=== PATIENT | female | born 1985 | race American Indian/Alaskan Native ===

== ENCOUNTER 2021-03-11 09:36 | Emergency (ER) | payer SELFPAY ==
--- NOTE | 2021-03-11 10:48 | Emergency Department Report ---
- General Chief Complaint: Upper Respiratory Infection Stated Complaint: FLU LIKE SYMPTOMS Time Seen by Provider: 03/11/21 10:37 Source: patient Mode of arrival: Ambulatory Limitations: No Limitations - History of Present Illness Initial Comments: 35-year-old -[place] male presents to the ER today requesting clearance to return to work. Patient states that she started with URI/flulike symptoms 2 days ago. She states majority of her symptoms have resolved, except that she still continues to have sore throat, intermittent cough and some pains in her legs. She states that 2 of her kids were tested positive for COVID 19 4 days ago. 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 She states that her job does daily COVID-19 test at her job and she did have a negative COVID test yesterday. 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 MD Complaint: cough, sore throat, other (MYALGIA) -: days(s) (2) - Related Data Home Medications Medication Instructions Recorded Confirmed Last Taken Ibuprofen [Motrin] 800 mg PO Q8H PRN 04/06/14 03/11/21 04/06/14 10:00 Previous Rx's Medication Instructions Recorded Last Taken Type Ciprofloxacin HCl [Cipro] 500 mg PO BID #14 tablet 04/06/14 Unknown Rx Ibuprofen [Motrin 600 MG tab] 600 mg PO Q8H PRN #20 tablet 04/06/14 Unknown Rx Ketorolac [Toradol] 10 mg PO Q6H PRN #20 03/11/21 Unknown Rx Allergies Allergy/AdvReac Type Severity Reaction Status Date / Time acetaminophen [From Vicodin] AdvReac Vomiting Verified 03/11/21 11:17 hydrocodone bitartrate AdvReac Vomiting Verified 03/11/21 11:17 [From Vicodin] ondansetron HCl AdvReac Vomiting Verified 03/11/21 11:17 [From Zofran (as hydrochloride)] ED Review of Systems ROS: Stated complaint: FLU LIKE SYMPTOMS Other details as noted in HPI Comment: All other systems reviewed and negative Constitutional: denies: chills, fever Eyes: denies: eye pain, eye discharge, vision change ENT: throat pain. denies: ear pain, congestion Respiratory: cough. denies: shortness of breath, SOB with exertion, SOB at rest, wheezing Cardiovascular: denies: chest pain, palpitations, dyspnea on exertion, edema, syncope, paroxysmal nocturnal dyspnea Gastrointestinal: denies: abdominal pain, nausea, vomiting, diarrhea, constipation, hematemesis, melena, hematochezia Genitourinary: denies: urgency, dysuria, frequency, hematuria, discharge Musculoskeletal: myalgia. denies: back pain, joint swelling, arthralgia Skin: denies: rash, lesions, pruritus Neurological: denies: headache, weakness, numbness, paresthesias, confusion, abnormal gait, vertigo ED Past Medical Hx - Surgical History Additional Surgical History: tubal ligation - Social History Smoking Status: Current Every Day Smoker Substance Use Type: Alcohol - Medications Home Medications: Home Medications Medication Instructions Recorded Confirmed Last Taken Type Ciprofloxacin HCl [Cipro] 500 mg PO BID #14 tablet 04/06/14 03/11/21 Unknown Rx Ibuprofen [Motrin 600 MG tab] 600 mg PO Q8H PRN #20 tablet 04/06/14 03/11/21 Unknown Rx Ibuprofen [Motrin] 800 mg PO Q8H PRN 04/06/14 03/11/21 04/06/14 10:00 History Ketorolac [Toradol] 10 mg PO Q6H PRN #20 03/11/21 Unknown Rx ED Physical Exam - General Limitations: No Limitations ED Course Vital Signs 03/11/21 03/11/21 03/11/21 10:14 11:13 11:16 Temperature 98.6 F 98.1 F 98.1 F Pulse Rate 82 73 73 Respiratory 20 20 20 Rate Blood Pressure 160/104 126/78 Blood Pressure 126/69 [Right] O2 Sat by Pulse 100 99 99 Oximetry ED Medical Decision Making - Radiology Data Radiology results: report reviewed Patient: GEO MONTALVO MR#: [id number] : 1985 Acct:[id number] Age/Sex: 35 / F ADM Date: 03/11/21 Loc: ED Attending Dr: Ordering Physician: EMILY WOODARD Date of Service: 03/11/21 Procedure(s): XR chest routine 2V Accession Number(s): [id number] cc: EMILY WOODARD Fluoro Time In Minutes: XR chest routine 2V INDICATION / CLINICAL INFORMATION: COUGH. COMPARISON: None available. FINDINGS: SUPPORT DEVICES: None. HEART /PULMONARY VASCULATURE: No significant abnormality. LUNGS / PLEURA: No significant pulmonary or pleural abnormality. No pneumothorax. ADDITIONAL FINDINGS: No significant additional findings. IMPRESSION: 1. No acute findings. Signer Name: Bhavya Packer MD Signed: 03/11/2021 11:31 AM Workstation Name: [id number] Transcribed By: LAURITA Dictated By: BHAVYA PACKER MD Electronically Authenticated By: BHAVYA PACKER MD Signed Date/Time: 03/11/211130 DD/ 30 TD/TT: - Medical Decision Making 35-year-old -[place] male presents to the ER today requesting clearance to return to work. Patient states that she started with URI/flulike symptoms 2 days ago. She states majority of her symptoms have resolved, except that she still continues to have sore throat, intermittent cough and some pains in her legs. She states that 2 of her kids were tested positive for COVID 19 4 days ago. She states also that the rest of her family have been sick with COVID-19. 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 She is fully vaccinated gets COVID-19. She states that her job does daily COVID-19 test at her job and she did have a negative COVID test yesterday. 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 1151: X-ray shows nothing acute. Rapid strep and rapid flu negative. Patient is currently sitting comfortably on the chair, playing on her phone. She is not in any acute pain or respiratory distress. She is not toxic or ill-appearing. She appears well-hydrated. She is tolerating secretions well, she has no trismus, drooling or voice change on exam. She has no meningeal signs on exam. Abdomen is soft and nontender. She is neurologically intact with a normal gait. Repeated vital signs are stable. Patient symptoms are related to a nonspecific viral illness. Discussed results and suspected diagnosis with patient. Informed that she should be able to return to work on Saturday. Informed her that if her COVID test happens to be positive Saturday, then she will need to quarantine for 5 days and symptomatic treatment. At this time there is no indication for additional testing or admission to the hospital. Patient expressed understanding of all instructions and agree with plan. Patient stable at time of discharge. Critical care attestation.: If time is entered above; I have spent that time in minutes in the direct care of this critically ill patient, excluding procedure time. ED Disposition Clinical Impression: Viral illness Disposition: HOME / SELF CARE / HOMELESS Is pt being admited?: No Does the pt Need Aspirin: No Condition: Stable Instructions: Viral Illness, Adult Additional Instructions: Your rapid flu, rapid strep, and chest x-ray showed focal negative for anything acute. Suspect your symptoms are likely related to a nonspecific viral illness at this time. Recommend that you drink lots of fluids, and take the Toradol as prescribed to help with any pain. You can also use [id number] throat lozenges or throat sprays to help with your symptoms. You should be able to return to work on Saturday. Follow-up closely with your PCP. Return to the ER if your symptoms changes or worsens in any way. Prescriptions: Ketorolac [Toradol] 10 mg PO Q6H PRN #20 PRN Reason: Pain Referrals: PRIMARY CARE, [Primary Care Provider] - 3-5 Days Forms: Work/School Release Form(ED) Time of Disposition: 11:39
[2021-03-11] MEDS ORDERED: ACETAMINOPHEN 325 MG TAB PO ONE (10:57)
[2021-03-11] MEDS ORDERED: DEXAMETHASONE 4 MG TAB PO ONE (10:57)
--- NOTE | 2021-03-11 11:35 | XRay Report ---
XR chest routine 2V INDICATION / CLINICAL INFORMATION: COUGH. COMPARISON: None available. FINDINGS: SUPPORT DEVICES: None. HEART /PULMONARY VASCULATURE: No significant abnormality. LUNGS / PLEURA: No significant pulmonary or pleural abnormality. No pneumothorax. ADDITIONAL FINDINGS: No significant additional findings. IMPRESSION: 1. No acute findings. Signer Name: Sanju Packer MD Signed: 03/11/2021 11:31 AM Workstation Name: [id number]
[2021-03-11 11:54] VITALS: BP 120/75
== END 2021-03-11 11:54 | disposition home or self-care (01) ==
LOC: ED 09:36
DX: B34.9 Viral infection, unspecified (principal); F17.200 Nicotine dependence, unspecified, uncomplicated
CPT/HCPCS: 71046; 87116; 87400; 87430; 99284; J8540